=== PATIENT | male | born 1990 ===

== ENCOUNTER 2019-04-26 21:04 | Emergency (ER) | payer OTHER ==
[~2019-04-26] VITALS: Ht 177.8 cm; Wt 88.5 kg
== END 2019-04-26 23:13 | disposition home or self-care (01) ==
LOC: ER 21:04
DX: F15.929 Other stimulant use, unspecified with intoxication, unspecified (principal); F41.8 Other specified anxiety disorders

== ENCOUNTER 2019-04-29 16:59 | Emergency (ER) | payer OTHER ==
[~2019-04-29] VITALS: Ht 177.8 cm; Wt 85.7 kg
== END 2019-04-29 21:35 | disposition home or self-care (01) ==
LOC: ER 16:59
DX: R07.89 Other chest pain (principal)

== ENCOUNTER 2019-05-06 12:20 | Emergency (ER) | payer OTHER ==
[~2019-05-06] VITALS: Ht 177.8 cm; Wt 86.2 kg
== END 2019-05-06 13:41 | disposition home or self-care (01) ==
LOC: ER 12:20
DX: R07.89 Other chest pain (principal)

== ENCOUNTER 2019-05-26 12:23 | Emergency (ER) | payer OTHER ==
[~2019-05-26] VITALS: Ht 177.8 cm; Wt 87.1 kg
== END 2019-05-26 14:14 | disposition home or self-care (01) ==
LOC: ER 12:23
DX: F41.0 Panic disorder [episodic paroxysmal anxiety] (principal); R07.89 Other chest pain